=== PATIENT | male | born 2000 | race Two or more races ===

== ENCOUNTER 2023-04-23 11:48 | Outpatient (REF) | payer OTHER, SELFPAY ==
--- NOTE | ~2023-04-23 | MR_ITS ---
EXAMINATION: MR KNEE WITHOUT CONTRAST, RIGHT CLINICAL INFORMATION: Instability, effusion. Pain with flexion and extension. COMPARISON: None available. TECHNIQUE: MRI of the knee without contrast was performed using routine sequences on a high-field scanner. FINDINGS: MENISCI: Medial Meniscus: Meniscal body is focally extruded from the joint line with an associated ill-defined radial tear in this region. Surrounding soft tissues are edematous. Posterior horn is diminutive, likely the result of prior partial meniscectomy. There is a small residual band of vertical increased signal in the posterior horn which may represent a remnant of an old tear. Lateral Meniscus: There is a chronic tear of the posterior root sparing the attachments of the meniscofemoral ligaments. LIGAMENTS: Cruciate: ACL graft is disrupted and largely resorbed with a very thin band of residual fibers. PCL appears intact. Collateral: Edema signal around the MCL is likely reactive to the underlying meniscal abnormality. Collateral ligaments are intact. EXTENSOR MECHANISM: Intact. Scar tissue and postsurgical changes are evident at the Hoffa's fat pad. ARTICULAR CARTILAGE/BONE: Patellofemoral Compartment: Normal. Medial Compartment: Small marginal osteophytes. Edema signal is present along the posterior margin of the medial tibial plateau with associated cortical irregularity and small marginal osteophytes. There is a medial patellar plica across the medial trochlear facet without significant surrounding edema signal or plica thickening. Lateral Compartment: A full-thickness chondral defect at the posterior weightbearing surface of the medial femoral condyle measures 1.4 x 1 cm with underlying cortical irregularity, subcortical cystic change, and subcortical edema signal. Small marginal osteophytes. There is focal chondral thinning at the lateral tibial spine and posterior margin of the lateral tibial plateau. JOINT FLUID AND BURSAE: Moderate-sized joint effusion. Mild pes anserine bursitis. There is a 6 mm low signal intensity chondral loose body in the lateral recess of the patellofemoral compartment. MR/MR knee RT wo con IMPRESSION: 1. Complete tear of the ACL graft. 2. 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 3. Status post partial medial meniscectomy with a radial tear at the meniscal body and extrusion of the meniscal body. 4. A 1.4 x 1 cm full-thickness chondral defect at the posterior weightbearing surface of the medial femoral condyle. 5. Mild medial and lateral compartment osteoarthritis. 6. Moderate-sized joint effusion with a 6 mm chondral loose body in the lateral recess of the patellofemoral compartment.
== END 2023-04-23 11:49 | disposition home or self-care (01) ==
LOC: HO.MRI 11:48
PROVIDERS: Visit Provider Student in an Organized Health Care Education/Training Program
DX: M25.361 Other instability, right knee (principal); M25.461 Effusion, right knee
CPT/HCPCS: 73721